=== PATIENT | female | born 1975 | race Caucasian/White ===

== ENCOUNTER → 2017-12-10 | Outpatient (CLI) | payer OTHER | LOC: M RAD 11:44 | DX: M51.24 Other intervertebral disc displacement, thoracic region (principal) | CPT/HCPCS: 72131 ==

== ENCOUNTER → 2018-11-17 | Outpatient (CLI) | payer OTHER ==
--- NOTE | 2018-11-20 17:57 | SLEEPHOME ---
DATE OF PROCEDURE: 11/17/2018 ORDERED BY: Mario Reynoso MD Diagnostic home sleep testing was performed due to concern for the obstructive sleep apnea syndrome. For testing a nocturnal T3 respiratory monitoring device was used. Continuous record was made of pulse, oxygen saturation, airflow, chest and abdominal strain and body position. 9 hours and 59 minutes of data were reviewed. There were 6 hours and 59 minutes marked as time in bed. During the interval marked time in bed there were 92 respiratory events identified of 10 seconds in duration or greater for a respiratory event index of 13.2. The events were primarily obstructive. Baseline pulse rate 78 beats per minute. Pulse rate ranged 64-101. Baseline saturation 90%. Saturations fell to 77%. Testing was performed in both the supine and nonsupine positions. IMPRESSION Abnormal home sleep testing with repetitive respiratory events and oxygen desaturations to 77% with a respiratory event index of 13.2 consistent with the obstructive sleep apnea syndrome. RECOMMENDATIONS The patient should be encouraged to undergo formal sleep evaluation and in laboratory pressure titration.
== END ==
LOC: M SLEEP HO 11:01
PROVIDERS: ATTEND Internal Medicine Pulmonary Disease
DX: G47.33 Obstructive sleep apnea (adult) (pediatric) (principal)

== ENCOUNTER → 2020-06-08 | Outpatient (REF) | payer OTHER | LOC: M LAB REF 13:01 | PROVIDERS: ATTEND Nurse Practitioner Family | DX: N39.0 Urinary tract infection, site not specified (principal) ==

== ENCOUNTER → 2020-11-24 | Outpatient (CLI) | payer OTHER ==
[~2020-11-24] MED LIST: PROHANCE 279.3MG/ML 15ML VIAL As Ordered ONE; PROHANCE 279.3MG/ML 5ML VIAL As Ordered ONE
--- NOTE | 2020-11-24 13:29 | REP ---
INDICATION: MASSES IN ABD FOUND ON CT. COMPARISON: CT 10/24/2020. TECHNIQUE: Multiple sequences obtained in the axial coronal planes prior to and following the intravenous administration of 20 mL ProHance. FINDINGS: The liver is enlarged having a length of 21.6 cm. On precontrast images there are scattered ill-defined areas of the low signal on out of phase images, which are relatively increased in signal on in phase images consistent with areas of fatty infiltration of the liver. These same areas of low signal are also low in signal on the immediate postcontrast T1 fat-sat images, and correspond to the areas of low density on the CT scan. The findings are consistent with diffuse heterogeneous fatty infiltration of the liver. There is no abnormal arterial phase mass enhancement in the liver. There is no filling defect or wall thickening of the gallbladder. There is no biliary dilatation. The spleen, adrenals, pancreas and kidneys appear normal. There is no abdominal aortic aneurysm. There is no adenopathy. There is no free fluid in the abdomen. There is a small supraumbilical hernia in the midline containing noninflamed fat, the aperture of the hernia in the anterior abdominal wall has a width of 1.3 cm. IMPRESSION: Diffuse ill-defined nodular pattern of fatty infiltration of the liver. [id number] hepatomegaly. No suspicious enhancing mass in the liver. <Electronically signed by Manas Melissa > 11/24/20 [id number]
== END ==
LOC: M RAD 09:11
PROVIDERS: ATTEND Nurse Practitioner Family
DX: D49.0 Neoplasm of unspecified behavior of digestive system (principal); K76.0 Fatty (change of) liver, not elsewhere classified
CPT/HCPCS: 74183; A9576

== ENCOUNTER → 2020-12-07 | Outpatient (CLI) | payer OTHER ==
--- NOTE | 2020-12-07 13:13 | REP ---
INDICATION: RT LEG PAIN, R/O DVT. COMPARISON: None. TECHNIQUE: Right lower extremity duplex venous ultrasound. FINDINGS: The deep veins are anechoic and fully compressible from the groin to the popliteal fossa in the right lower extremity. Color flow imaging is homogeneous. Spectral Doppler interrogation demonstrates intact respiratory variation in flow and normal manual augmentation of flow. There is no evidence of deep vein thrombosis. IMPRESSION: Negative right lower extremity duplex venous ultrasound. No evidence of deep vein thrombosis. <Electronically signed by Reyes Gilbert > 12/07/20 [id number]
== END ==
LOC: M RAD 12:17
PROVIDERS: ATTEND Nurse Practitioner Family
DX: M79.661 Pain in right lower leg (principal)

== ENCOUNTER → 2021-12-21 | Outpatient (CLI) | payer OTHER | LOC: M RAD 15:25 | PROVIDERS: ATTEND Nurse Practitioner Family | DX: E04.1 Nontoxic single thyroid nodule (principal) ==

== ENCOUNTER → 2022-02-22 | Outpatient (CLI) | payer OTHER ==
[~2022-02-22] MED LIST changes: +GASTROGRAFIN SOLUTION 30ML (Q9963) As Ordered ONE; +ISOVUE-370 76% 100ML VIAL As Ordered ONE; -PROHANCE 279.3MG/ML 15ML VIAL As Ordered ONE; -PROHANCE 279.3MG/ML 5ML VIAL As Ordered ONE
== END ==
LOC: M RAD 07:53
PROVIDERS: ATTEND Nurse Practitioner Family
DX: R10.33 Periumbilical pain (principal)
CPT/HCPCS: 74178; Q9963; Q9967

== ENCOUNTER 2022-03-13 17:40 | Inpatient (IN) | payer OTHER ==
[~2022-03-13] VITALS: Ht 165.1 cm; Wt 129.6 kg
[2022-03-13] MEDS ORDERED: HUMI40KI2 (18:19)
[2022-03-13] MEDS ORDERED: BENZ5GEL13 (18:19)
[2022-03-13] MEDS ORDERED: TRIA1CR80 (18:19)
[2022-03-13] MEDS ORDERED: PANT40TA29 PO (18:19)
[2022-03-13] MEDS ORDERED: AMMO12LO (18:19)
[2022-03-13] MEDS ORDERED: CETI-24 PO (18:19)
[2022-03-13] MEDS ORDERED: CLIN1LOT (18:19)
[2022-03-13] MEDS ORDERED: PREG150C PO (18:19)
[2022-03-13] MEDS ORDERED: ASPI-226 PO (18:19)
[2022-03-13] MEDS ORDERED: ACET300T48 PO (18:19)
[2022-03-13] MEDS ORDERED: CLOT1CRE71 (18:19)
[2022-03-13] MEDS ORDERED: METO50TA7 PO (18:19)
[2022-03-13 19:07] LABS: HEMATOCRIT 41.6 % (36.0-47.0); HEMOGLOBIN 13.8 g/dl (12.0-15.5); MEAN CORPUSCULAR HEMOGLOBIN 30.5 pg (27.0-33.0); MEAN CORPUSCULAR HGB CONC 33.2 g/dl (32.0-36.5); PLATELET COUNT, AUTOMATED 198 10^3/uL (150-450); RED BLOOD COUNT 4.52 10^6/uL (4.00-5.40); WHITE BLOOD COUNT 15.7 10^3/uL (4.0-10.0)
[2022-03-13 19:40] LABS: ALT/SGPT 44 U/L (12-78); BILIRUBIN,DIRECT 0.2 MG/DL (0.0-0.2); BILIRUBIN,TOTAL 0.4 MG/DL (0.2-1.0); BLOOD UREA NITROGEN 18 MG/DL (7-18); CARBON DIOXIDE LEVEL 25 MEQ/L (21-32); CHLORIDE LEVEL 112 MEQ/L (98-107); CREATININE FOR GFR 0.87 MG/DL (0.55-1.30); GLOMERULAR FILTRATION RATE > 60.0 (>58); GLUCOSE, FASTING 111 MG/DL (70-100); NT-PRO BNP 186 PG/ML (<125); POTASSIUM SERUM 3.5 MEQ/L (3.5-5.1); SODIUM LEVEL 144 MEQ/L (136-145); THYROXINE (T4) 12.5 UG/DL (4.5-12.0); TOTAL PROTEIN 6.4 GM/DL (6.4-8.2)
[2022-03-13 20:02] LABS: PLATELET ESTIMATE NORMAL (NORMAL)
[2022-03-13] MEDS ORDERED: ISOVUE-370 76% 100ML VIAL As Ordered ONE (20:11)
[2022-03-13] MEDS ORDERED: AZITHROMYCIN INJ 500 MG, VIAL MATE ADAPTER 1 EACH in NS 250 ML IV ONE (21:20)
[2022-03-13] MEDS ORDERED: cefTRIAXone SOD 1 GM in D5W MINI-BAG PLUS 50 ML IV ONE (21:20)
[2022-03-13] MEDS ORDERED: VANCOMYCIN HCL 2,000 MG in IV FLUID PLACE HOLDER 1 EA IV ONE (21:20)
[2022-03-13 21:49] LABS: PROLACTIN 7.1 NG/ML
[2022-03-13] MEDS ORDERED: VANCOMYCIN HCL 1,000 MG, VIAL MATE ADAPTER 1 EACH in NS 250 ML IV ONE ×2 (22:00→23:00)
[2022-03-13] MEDS ORDERED: FLUT1BLS5 INH (23:06)
[2022-03-13] MEDS ORDERED: AMIT50TA PO (23:06)
[2022-03-13] MEDS ORDERED: EZET10TA21 PO (23:06)
[2022-03-13] MEDS ORDERED: HOME MED LIST COMPLETE! XX SCH (23:50)
[2022-03-14] MEDS ORDERED: ALBUTEROL SULFATE 2.5 MG/0.5 ML INH NEB SOLN NEB PRN (01:45)
[2022-03-14 06:11] LABS: HEMATOCRIT 41.1 % (36.0-47.0); HEMOGLOBIN 13.5 g/dl (12.0-15.5); MEAN CORPUSCULAR HEMOGLOBIN 30.1 pg (27.0-33.0); MEAN CORPUSCULAR HGB CONC 32.8 g/dl (32.0-36.5); MEAN CORPUSCULAR VOLUME 91.7 fl (80.0-96.0); PLATELET COUNT, AUTOMATED 183 10^3/uL (150-450); RED BLOOD COUNT 4.48 10^6/uL (4.00-5.40); WHITE BLOOD COUNT 14.3 10^3/uL (4.0-10.0)
[2022-03-14 06:47] LABS: BLOOD UREA NITROGEN 16 MG/DL (7-18); CALCIUM LEVEL 8.6 MG/DL (8.5-10.1); CARBON DIOXIDE LEVEL 25 MEQ/L (21-32); CHLORIDE LEVEL 112 MEQ/L (98-107); CREATININE FOR GFR 0.91 MG/DL (0.55-1.30); GLOMERULAR FILTRATION RATE > 60.0 (>58); GLUCOSE, FASTING 114 MG/DL (70-100); POTASSIUM SERUM 3.2 MEQ/L (3.5-5.1); SODIUM LEVEL 144 MEQ/L (136-145)
[2022-03-14 07:08] LABS: ATYPICAL LYMPH 5 % (0-5); EOSINOPHILS 2 % (0-3); LYMPHOCYTES 37 % (16-44); MONOCYTES 10 % (0-5); NEUTROPHILS 44 % (28-66); PLATELET ESTIMATE NORMAL (NORMAL)
[2022-03-14] MEDS ORDERED: POTASSIUM CHLORIDE 10MEQ SR TABLET PO ONE (08:00)
[2022-03-14] MEDS ORDERED: ADVAIR HFA 115/21MCG INHALER INH SCH (08:00)
[2022-03-14] MEDS ORDERED: PREGABALIN 75 MG CAP(LYRICA) PO SCH (09:00)
[2022-03-14] MEDS ORDERED: ASPIRIN 81MG ENTERIC TABLET PO SCH (09:00)
[2022-03-14] MEDS ORDERED: EZETIMIBE 10MG TABLET (ZETIA) PO SCH (09:00)
[2022-03-14] MEDS ORDERED: METOPROLOL TART 50 MG TAB PO SCH (09:00)
[2022-03-14] MEDS ORDERED: ENOXAPARIN 40MG/0.4ML SYRINGE (J1650 PER 10MG) SC SCH (09:00)
[2022-03-14] MEDS ORDERED: CETIRIZINE (ZyrTEC) 10 MG TAB PO SCH (09:00)
[2022-03-14] MEDS ORDERED: LEVO750T13 PO (15:11)
[2022-03-14 15:27] VITALS: BP 131/60
[2022-03-14] MEDS ORDERED: cefTRIAXone SOD 1 GM in D5W MINI-BAG PLUS 50 ML IV SCH (21:00)
[2022-03-14] MEDS ORDERED: PANTOPRAZOLE 40MG TAB (PROTONIX) PO SCH (21:00)
[2022-03-14] MEDS ORDERED: AMITRIPTYLINE 50 MG TAB PO SCH (21:00)
[2022-03-14] MEDS ORDERED: AZITHROMYCIN INJ 500 MG, VIAL MATE ADAPTER 1 EACH in NS 250 ML IV SCH (22:00)
[2022-03-15 17:11] LABS: MYCOPLASMA PNEUMONIAE IgG 899 U/mL (0-99); MYCOPLASMA PNEUMONIAE IgM <770 U/mL (0-769)
== END 2022-03-14 16:39 | disposition left against medical advice (07) | DRG 139 ==
LOC: M ED 17:40 → M ED INP 23:24
PROVIDERS: ADMIT Family Medicine; ATTEND Family Medicine
DX: J18.9 Pneumonia, unspecified organism (principal); I25.2 Old myocardial infarction; E78.5 Hyperlipidemia, unspecified; L73.2 Hidradenitis suppurativa; L93.1 Subacute cutaneous lupus erythematosus; I10 Essential (primary) hypertension; F31.9 Bipolar disorder, unspecified; F43.10 Post-traumatic stress disorder, unspecified; F41.9 Anxiety disorder, unspecified; Z85.41 Personal history of malignant neoplasm of cervix uteri; Z90.49 Acquired absence of other specified parts of digestive tract; Z90.79 Acquired absence of other genital organ(s); F17.210 Nicotine dependence, cigarettes, uncomplicated; D72.829 Elevated white blood cell count, unspecified; J44.0 Chronic obstructive pulmonary disease with (acute) lower respiratory infection; M54.2 Cervicalgia; G89.29 Other chronic pain; Z20.822 Contact with and (suspected) exposure to COVID-19; K21.9 Gastro-esophageal reflux disease without esophagitis; Z79.82 Long term (current) use of aspirin; Z79.899 Other long term (current) drug therapy; Z88.8 Allergy status to other drugs, medicaments and biological substances; Z95.5 Presence of coronary angioplasty implant and graft; R91.8 Other nonspecific abnormal finding of lung field; Z91.19 Patient's noncompliance with other medical treatment and regimen; Z88.5 Allergy status to narcotic agent; Z88.6 Allergy status to analgesic agent

== ENCOUNTER → 2022-05-10 | Outpatient (REF) | payer OTHER ==
[~2022-05-10] MED LIST changes: +ACET300T48 PO; +AMIT50TA PO; +AMMO12LO; +ASPI-226 PO; +BENZ5GEL13; +CETI-24 PO; +CLIN1LOT; +CLOT1CRE71; +EZET10TA21 PO; +FLUT1BLS5 INH; -GASTROGRAFIN SOLUTION 30ML (Q9963) As Ordered ONE; +HUMI40KI2; -ISOVUE-370 76% 100ML VIAL As Ordered ONE; +LEVO1TAB40 PO; +METO50TA7 PO; +PANT40TA29 PO; +PREG150C PO; +TRIA1CR80
== END ==
LOC: M LAB REF 13:08
PROVIDERS: ATTEND Nurse Practitioner Family
DX: R30.0 Dysuria (principal)

== ENCOUNTER → 2022-07-03 | Outpatient (CLI) | payer OTHER | LOC: M RAD 07:37 | PROVIDERS: ATTEND Nurse Practitioner Family | DX: R22.42 Localized swelling, mass and lump, left lower limb (principal); M79.662 Pain in left lower leg; M71.22 Synovial cyst of popliteal space [Baker], left knee ==

== ENCOUNTER → 2023-09-18 | Outpatient (CLI) | payer OTHER ==
[~2023-09-18] MED LIST changes: +ALBU2.5V10 INH; +ALBU8.5H INH; +FLUTISP; +INCR1INH INH; +PRED5PAK2 PO; -PREG150C PO; +PREG150C2 PO; +ROSU40TA4 PO; +SIMV40TA20 PO
[2023-09-18 11:55] LABS: HEMATOCRIT 52.3 % (36.0-47.0); HEMOGLOBIN 16.6 g/dl (12.0-15.5); MEAN CORPUSCULAR HEMOGLOBIN 28.8 pg (27.0-33.0); MEAN CORPUSCULAR HGB CONC 31.7 g/dl (32.0-36.5); MEAN CORPUSCULAR VOLUME 90.8 fl (80.0-96.0); PLATELET COUNT, AUTOMATED 306 10^3/uL (150-450); RED BLOOD COUNT 5.76 10^6/uL (4.00-5.40); WHITE BLOOD COUNT 23.9 10^3/uL (4.0-10.0)
[2023-09-18 12:18] LABS: HEMOGLOBIN A1c 6.3 % (4.0-6.0)
[2023-09-18 12:26] LABS: BLOOD UREA NITROGEN 16 MG/DL (9-23); CALCIUM LEVEL 8.6 MG/DL (8.5-10.1); CARBON DIOXIDE LEVEL 33 MMOL/L (20-31); CHLORIDE LEVEL 108 MMOL/L (98-107); CREATININE FOR GFR 0.95 MG/DL (0.55-1.30); GLOMERULAR FILTRATION RATE > 60.0 (>51); GLUCOSE, FASTING 108 MG/DL (60-100); POTASSIUM SERUM 3.3 MMOL/L (3.5-5.1); SODIUM LEVEL 145 MMOL/L (136-145)
[2023-09-18 12:48] LABS: ATYPICAL LYMPH 15 % (0-5); BASOPHILS 1 % (0-1); EOSINOPHILS 1 % (0-3); LYMPHOCYTES 2 % (16-44); MONOCYTES 5 % (0-5); NEUTROPHILS 76 % (28-66); PLATELET ESTIMATE NORMAL (NORMAL)
[2023-09-18 12:51] LABS: POLYCHROMASIA 1+
== END ==
LOC: M PLALAB 07:04
PROVIDERS: ATTEND Nurse Practitioner Family
DX: E11.9 Type 2 diabetes mellitus without complications (principal); Z01.818 Encounter for other preprocedural examination

== ENCOUNTER → 2023-12-29 | Outpatient (REF) | payer OTHER ==
[~2023-12-29] MED LIST changes: +ADV250INH INH; +AMLO2.5T3 PO; +GLIM2TAB29 PO; +JARD1TAB PO; +LISI2.5T9 PO; +METO1TAB87 PO; +NITR0.4S14 SL; +OXYB10TA23 PO; -ROSU40TA4 PO; +ROSU40TA63 PO; +SUMA50TA2 PO
[2023-12-29 18:47] LABS: CREATININE, URINE 77.2 MG/DL
[2023-12-29 18:48] LABS: MAU/CREAT RATIO 40.1 MCG/MG (0.0-30.0)
== END ==
LOC: M LAB REF 16:55
PROVIDERS: ATTEND Nurse Practitioner Family
DX: E11.9 Type 2 diabetes mellitus without complications (principal); R30.0 Dysuria

== ENCOUNTER → 2024-10-21 | Outpatient (REF) | payer OTHER ==
[~2024-10-21] MED LIST changes: -ADV250INH INH; +ADVA1AER9 INH; -ROSU40TA63 PO; +ROSU40TA81 PO
[2024-10-21 19:04] LABS: APPEARANCE, URINE CLEAR (CLEAR); BACTERIA, URINE AUTO NEGATIVE (NEGATIVE); BILIRUBIN, URINE AUTO NEGATIVE (NEGATIVE); BLOOD, URINE BLOOD 2+ (NEGATIVE); COLOR, URINE YELLOW (YELLOW); GLUCOSE, URINE (UA) AUTO 3+ mg/dL (NEGATIVE); KETONE, URINE AUTO NEGATIVE (NEGATIVE); LEUKOCYTE ESTERASE, URINE AUTO NEGATIVE (NEGATIVE); NITRITE, URINE AUTO NEGATIVE (NEGATIVE); PROTEIN, URINE AUTO NEGATIVE (NEGATIVE); RBC, URINE AUTO 0 /HPF (0-3); SPECIFIC GRAVITY URINE AUTO 1.011 (1.002-1.035); SQUAMOUS EPITHELIAL CELL UR AU 1 /HPF (0-6); UROBILINOGEN, URINE AUTO 0.2 mg/dL (0.0-2.0); WBC, URINE AUTO 0 /HPF (0-3)
== END ==
LOC: M SMT 17:08
PROVIDERS: ATTEND Physician Assistant
DX: R31.0 Gross hematuria (principal)

== ENCOUNTER → 2025-05-16 | Outpatient (CLI) | payer OTHER ==
[~2025-05-16] MED LIST changes: -EZET10TA21 PO; +EZET10TA57 PO
== END ==
LOC: M PLAIMG 10:47
PROVIDERS: ATTEND Nurse Practitioner Family
DX: J20.9 Acute bronchitis, unspecified (principal)

== ENCOUNTER → 2025-07-27 | Outpatient (CLI) | payer OTHER ==
[2025-07-27 12:39] LABS: THYROGLOBULIN ANTIBODY 20.0 U/ML (<60.0); TOTAL T3 172.3 NG/DL (60.0-181.0)
[2025-07-27 12:40] LABS: FREE T4 1.31 NG/DL (0.89-1.76); THYROID PEROXIDASE ANTIBODY < 28.0 U/ML (<60.0)
== END ==
LOC: M LAB 10:51
PROVIDERS: ATTEND Otolaryngology
DX: E06.9 Thyroiditis, unspecified (principal)